=== PATIENT | female | born 1955 | race Caucasian/White ===

== ENCOUNTER → 2024-09-30 09:31 | Outpatient (REF) | payer OTHER, SELFPAY ==
[2024-09-30 11:09] LABS: Blood Urea Nitrogen 19 mg/dl (7-17); Calcium 9.5 mg/dl (8.4-10.2); Carbon Dioxide 29 mmol/L (22-30); Chloride 109 mmol/L (98-107); Glucose 99 mg/dl (70-99); HDL Cholesterol 63 mg/dl; Hematocrit 41.7 % (37.0-47.0); Hemoglobin 13.4 g/dL (12.0-16.0); LDL Cholesterol, Calculated 102 mg/dl; Mean Corp Hgb Conc. 32.1 g/dL (33.0-37.0); Mean Corpuscular Volume 87.6 fL (81.0-99.0); Platelet Count 234 10^3/uL (130-400); Potassium 4.5 mmol/L (3.5-5.1); Red Cell Dist. Width 13.6 % (11.5-14.5); Sodium 142 mmol/L (135-145); Very Low Density Lipoprotein 19 mg/dl (0-30); eGFR > 60.00
[2024-09-30 11:26] LABS: Vitamin D, 25-OH*** 29.3 ng/mL (30-80)
[2024-09-30 11:39] LABS: TSH 1.65 uIU/ml (0.47-4.68)
== END ==
LOC: OLABN 09:31
PROVIDERS: ATTENDING PHYSICIAN Student in an Organized Health Care Education/Training Program
DX: I10 Essential (primary) hypertension (principal); E55.9 Vitamin D deficiency, unspecified
CPT/HCPCS: 36415; 80048; 80061; 82306; 84443; 85027

== ENCOUNTER → 2024-11-26 10:02 | Outpatient (REF) | payer OTHER, SELFPAY ==
[2024-11-26 10:38] LABS: Magnesium 2.2 mg/dl (1.6-2.3)
[2024-11-26 10:58] LABS: Urine Character Clear (Clear)
[2024-11-26 11:40] LABS: Urine White Cell 40-50 /HPF (0-5)
[2024-11-26 11:43] LABS: Urine Red Blood Cell 0-2 /HPF (0-2)
[2024-11-26 11:51] LABS: Folate 12.4 ng/ml (2.76-20); Vitamin B12 610 pg/ml (239-931)
[2024-11-26 13:19] LABS: Glycohemoglobin (HgbA1c) 5.8 % (4.0-5.6)
== END ==
LOC: OLABN 10:02
PROVIDERS: ATTENDING PHYSICIAN Student in an Organized Health Care Education/Training Program
DX: I10 Essential (primary) hypertension (principal); E78.5 Hyperlipidemia, unspecified; R32 Unspecified urinary incontinence
CPT/HCPCS: 36415; 81003; 81015; 82607; 82746; 83036; 83735; 87086